=== PATIENT | female | born 1955 | race Two or more races ===

== ENCOUNTER 2022-07-02 19:51 | Inpatient (IN) | payer MEDICARE ==
[~2022-07-02] VITALS: Ht 167.6 cm; Wt 83.0 kg
[2022-07-02] MEDS ORDERED: LOSA25TA27 PO (20:03)
[2022-07-02] MEDS ORDERED: ROSU20TA2 PO (20:03)
[2022-07-02] MEDS ORDERED: DABI150C PO (20:03)
[2022-07-02] MEDS ORDERED: ASPI81TA31 PO (20:03)
[2022-07-02] MEDS ORDERED: OLAN10TA73 PO (20:03)
[2022-07-02] MEDS ORDERED: HALOPERIDOL LACTATE 5 MG/1 ML VIAL ONE (20:08)
[2022-07-02] MEDS ORDERED: HALOPERIDOL LACTATE 5 MG/1 ML VIAL IM ONE (20:15)
[2022-07-02 21:45] VITALS: BP 117/75
[2022-07-02] MEDS ORDERED: BLOOD SUGAR DIAGNOSTIC 1 EACH STRIP VI ONE (23:15)
[2022-07-02] MEDS ORDERED: ACETAMINOPHEN 325 MG TABLET PO PRN (23:15)
[2022-07-02] MEDS ORDERED: LORAZEPAM 0.5 MG TABLET PO PRN (23:15)
[2022-07-02] MEDS ORDERED: TEMAZEPAM 7.5 MG CAPSULE PO PRN (23:15)
[2022-07-02] MEDS ORDERED: MAG HYDROX/AL HYDROX/SIMETH 30 ML LIQUID UDC PO PRN (23:15)
[2022-07-02] MEDS ORDERED: MAGNESIUM HYDROXIDE 30 ML LIQUID UDC PO PRN (23:15)
[2022-07-03] MEDS ORDERED: BLOOD SUGAR DIAGNOSTIC 1 EACH STRIP VI ONE (00:30)
[2022-07-03 07:58] LABS: BILIRUBIN,TOTAL 0.4 mg/dL (0.2-1.0); CREATININE 0.6 mg/dL (0.6-1.3); POTASSIUM 3.1 mmol/L (3.5-5.1); TOTAL PROTEIN, SERUM 7.3 g/dL (6.4-8.2)
[2022-07-03 07:59] VITALS: BP 99/53
[2022-07-03] MEDS ORDERED: POTASSIUM CHLORIDE 20 MEQ TAB.PRT.SR PO ONE (10:00)
[2022-07-03] MEDS ORDERED: OLANZAPINE 2.5 MG TABLET PO PRN (11:00)
[2022-07-03 15:32] VITALS: BP 116/60
[2022-07-03 20:00] VITALS: BP 113/75
[2022-07-03] MEDS ORDERED: OLANZAPINE 5 MG TABLET PO SCH (21:00)
[2022-07-04 07:40] LABS: BILIRUBIN,TOTAL 0.3 mg/dL (0.2-1.0); CREATININE 0.6 mg/dL (0.6-1.3); POTASSIUM 3.4 mmol/L (3.5-5.1); TOTAL PROTEIN, SERUM 7.1 g/dL (6.4-8.2)
[2022-07-04 08:04] VITALS: BP 105/63
[2022-07-04] MEDS ORDERED: POTASSIUM CHLORIDE 20 MEQ TAB.PRT.SR PO ONE (10:00)
[2022-07-04] MEDS: ASPIRIN EC 81 MG TABLET.DR PO SCH (10:17)
[2022-07-04] MEDS: OLANZAPINE 2.5 MG TABLET PO SCH ×2 (12:32→17:00)
[2022-07-04] MEDS: POTASSIUM CHLORIDE 20 MEQ TAB.PRT.SR PO ONE ×2 (13:57→14:00)
[2022-07-04 16:00] VITALS: BP 125/76
[2022-07-04 20:00] VITALS: BP 148/76
[2022-07-04] MEDS: OLANZAPINE 5 MG TABLET PO SCH ×2 (21:00→21:03)
[2022-07-05] MEDS: PANTOPRAZOLE SODIUM 40 MG TABLET.DR PO SCH (06:12)
[2022-07-05 07:51] VITALS: BP 114/73
[2022-07-05] MEDS: ASPIRIN EC 81 MG TABLET.DR PO SCH (09:00)
[2022-07-05] MEDS: OLANZAPINE 2.5 MG TABLET PO SCH ×2 (09:14→17:00)
[2022-07-05 15:19] VITALS: BP 127/70
[2022-07-05 19:51] VITALS: BP 112/68
[2022-07-05] MEDS: OLANZAPINE 5 MG TABLET PO SCH (20:23)
[2022-07-06] MEDS: PANTOPRAZOLE SODIUM 40 MG TABLET.DR PO SCH (06:09)
[2022-07-06 08:15] VITALS: BP 113/66
[2022-07-06] MEDS: ASPIRIN EC 81 MG TABLET.DR PO SCH (09:12)
[2022-07-06] MEDS: OLANZAPINE 2.5 MG TABLET PO SCH ×2 (09:13→16:53)
[2022-07-06 15:51] VITALS: BP 128/66
[2022-07-06 19:49] VITALS: BP 141/80
[2022-07-06] MEDS: OLANZAPINE 5 MG TABLET PO SCH (20:10)
[2022-07-07] MEDS: PANTOPRAZOLE SODIUM 40 MG TABLET.DR PO SCH (06:07)
[2022-07-07 07:32] VITALS: BP 126/74
[2022-07-07] MEDS: ASPIRIN EC 81 MG TABLET.DR PO SCH (08:30)
[2022-07-07] MEDS: OLANZAPINE 2.5 MG TABLET PO SCH ×2 (08:30→17:08)
[2022-07-07 15:52] VITALS: BP 156/78
[2022-07-07 20:09] VITALS: BP 113/77
[2022-07-07] MEDS: OLANZAPINE 5 MG TABLET PO SCH (21:58)
[2022-07-08] MEDS: PANTOPRAZOLE SODIUM 40 MG TABLET.DR PO SCH (06:26)
[2022-07-08 08:08] VITALS: BP 147/82
[2022-07-08] MEDS: OLANZAPINE 2.5 MG TABLET PO SCH ×2 (08:53→16:37)
[2022-07-08] MEDS: ASPIRIN EC 81 MG TABLET.DR PO SCH (08:53)
[2022-07-08 16:23] VITALS: BP 139/76
[2022-07-08 20:00] VITALS: BP 141/72
[2022-07-08] MEDS: OLANZAPINE 5 MG TABLET PO SCH ×2 (21:00→21:33)
[2022-07-09] MEDS: PANTOPRAZOLE SODIUM 40 MG TABLET.DR PO SCH (06:36)
[2022-07-09 07:41] VITALS: BP 134/60
[2022-07-09] MEDS: OLANZAPINE 2.5 MG TABLET PO SCH ×2 (08:44→08:54)
[2022-07-09] MEDS: ASPIRIN EC 81 MG TABLET.DR PO SCH (08:44)
[2022-07-09 16:14] VITALS: BP 148/77
[2022-07-09 20:06] VITALS: BP 139/50
[2022-07-09] MEDS: OLANZAPINE 5 MG TABLET PO SCH (20:46)
[2022-07-10] MEDS: PANTOPRAZOLE SODIUM 40 MG TABLET.DR PO SCH (06:10)
[2022-07-10 07:38] VITALS: BP 110/62
[2022-07-10] MEDS: ASPIRIN EC 81 MG TABLET.DR PO SCH (08:10)
[2022-07-10] MEDS: OLANZAPINE 2.5 MG TABLET PO SCH (08:10)
[2022-07-10 12:06] LABS: HEMATOCRIT 34.7 % (31.2-41.9); MEAN CORPUSCULAR HEMOGLOBIN 28.2 uug (24.7-32.8); MEAN CORPUSCULAR VOLUME 85.2 fL (75.5-95.3); PLATELET COUNT (AUTO) 237 K/uL (179-408)
[2022-07-10 12:45] LABS: CREATININE 0.6 mg/dL (0.6-1.3); MAGNESIUM 2.1 mg/dL (1.8-2.4); PHOSPHOROUS 3.4 mg/dL (2.5-4.9); POTASSIUM 4.5 mmol/L (3.5-5.1)
[2022-07-10 13:05] LABS: THYROID STIMULATING HORMONE 2.828 mIU/mL (0.358-3.740)
[2022-07-10 16:14] VITALS: BP 132/74
[2022-07-10 19:41] VITALS: BP 120/72
[2022-07-10] MEDS: OLANZAPINE 5 MG TABLET PO SCH (20:09)
[2022-07-11] MEDS: PANTOPRAZOLE SODIUM 40 MG TABLET.DR PO SCH (06:55)
[2022-07-11 07:48] VITALS: BP 116/74
[2022-07-11] MEDS: ASPIRIN EC 81 MG TABLET.DR PO SCH (08:33)
[2022-07-11] MEDS: OLANZAPINE 2.5 MG TABLET PO SCH (08:33)
[2022-07-11 16:15] VITALS: BP 132/73
[2022-07-11] MEDS: OLANZAPINE 5 MG TABLET PO SCH (20:40)
[2022-07-11 21:09] VITALS: BP 119/56
[2022-07-12] MEDS: PANTOPRAZOLE SODIUM 40 MG TABLET.DR PO SCH (06:13)
[2022-07-12 07:30] VITALS: BP 116/68
[2022-07-12] MEDS: OLANZAPINE 2.5 MG TABLET PO SCH (08:25)
[2022-07-12] MEDS: ASPIRIN EC 81 MG TABLET.DR PO SCH (08:25)
[2022-07-12 15:17] VITALS: BP 114/69
[2022-07-12 20:02] VITALS: BP 121/59
[2022-07-12] MEDS: OLANZAPINE 5 MG TABLET PO SCH (20:17)
[2022-07-13] MEDS: PANTOPRAZOLE SODIUM 40 MG TABLET.DR PO SCH (06:17)
[2022-07-13 07:30] VITALS: BP 104/63
[2022-07-13] MEDS: OLANZAPINE 2.5 MG TABLET PO SCH (08:54)
[2022-07-13] MEDS: ASPIRIN EC 81 MG TABLET.DR PO SCH (08:54)
[2022-07-13 15:30] VITALS: BP 105/71
[2022-07-13] MEDS: OLANZAPINE 5 MG TABLET PO SCH (20:02)
[2022-07-13 22:28] VITALS: BP 115/71
[2022-07-14] MEDS: PANTOPRAZOLE SODIUM 40 MG TABLET.DR PO SCH (06:22)
[2022-07-14 07:13] VITALS: BP 119/74
[2022-07-14] MEDS: ASPIRIN EC 81 MG TABLET.DR PO SCH (08:49)
[2022-07-14] MEDS: OLANZAPINE 2.5 MG TABLET PO SCH (08:49)
== END 2022-07-14 15:00 | disposition home or self-care (01) | DRG 885 ==
LOC: ER 19:51 → GPS 21:09
PROVIDERS: ADMIT Psychiatry & Neurology Psychosomatic Medicine; ATTEND Nurse Practitioner Acute Care
DX: F25.9 Schizoaffective disorder, unspecified (principal); D68.59 Other primary thrombophilia; F20.0 Paranoid schizophrenia; G47.30 Sleep apnea, unspecified; Z79.82 Long term (current) use of aspirin; I48.0 Paroxysmal atrial fibrillation; F41.9 Anxiety disorder, unspecified; F32.9 Major depressive disorder, single episode, unspecified; E87.6 Hypokalemia; E66.9 Obesity, unspecified; Z91.148 Patient's other noncompliance with medication regimen for other reason; G47.33 Obstructive sleep apnea (adult) (pediatric); Z68.29 Body mass index [BMI] 29.0-29.9, adult; Z86.73 Personal history of transient ischemic attack (TIA), and cerebral infarction without residual deficits; Z88.2 Allergy status to sulfonamides; Z87.891 Personal history of nicotine dependence; E78.00 Pure hypercholesterolemia, unspecified; Z79.02 Long term (current) use of antithrombotics/antiplatelets; Z79.899 Other long term (current) drug therapy
CPT/HCPCS: 36415; 83735; 84100; 84443; 85025; A4663; A6209; J1630